=== PATIENT | female | born 1975 | race Caucasian/White ===

== ENCOUNTER 2022-05-30 17:46 | Outpatient (CLI) | payer BC, SELFPAY ==
[2022-05-30 22:09] LABS: TSH With Reflex to FT4* < 0.015 uIU/mL (0.270-4.200)
[2022-05-30 22:57] LABS: Free T4 Free Thyroxine* 1.81 ng/dL (0.70-1.85)
== END 2022-05-30 17:47 | disposition home or self-care (01) ==
LOC: KYNREF 17:47
PROVIDERS: PCP Nurse Practitioner Family; Visit Provider Nurse Practitioner Family
DX: E05.90 Thyrotoxicosis, unspecified without thyrotoxic crisis or storm (principal)
CPT/HCPCS: 84439; 84443

== ENCOUNTER 2022-11-21 16:14 | Outpatient (CLI) | payer BC, SELFPAY | END 2022-11-21 16:15 | disposition home or self-care (01) | PROVIDERS: PCP Nurse Practitioner Family; Visit Provider Nurse Practitioner Family | DX: D50.9 Iron deficiency anemia, unspecified (principal) | CPT/HCPCS: 80048; 82607; 83540; 83550; 83735; 84439; 84443; 85025 ==

== ENCOUNTER 2022-11-28 15:39 | Outpatient (CLI) | payer BC, SELFPAY ==
--- NOTE | 2022-11-28 16:00 | CRLHL7_ITS ---
For Patients: As a result of the Century Cures Act, medical imaging exams and procedure reports are released immediately into your electronic medical record. You may view this report before your referring provider. If you have questions, please contact your health care provider. INDICATION: iron deficiency anemia COMPARISON: none TECHNIQUE: 2D ferrell scale and color Doppler images were acquired of the pelvis using a transabdominal and transvaginal approach. FINDINGS: section scar is present. Left fundal intramural fibroid is present measuring 2.8 x 2.0 x 2.9 cm. Uterus measures 10.1 cm in length by 5.4 cm in AP diameter by 6.8 cm in transverse dimension. The myometrium has a normal uniform echotexture. The endometrial lining appears thickened and heterogeneous and measures 19 mm in composite thickness. The right ovary measures 3.4 x 1.9 x 3.3 cm in size and the left ovary measures 3.4 x 2.2 x 2.2 cm. Hypoechoic left ovarian cyst measuring 2.3 x 2.0 x 2.0 cm. The ovaries demonstrate normal arterial and venous blood flow on color Doppler analysis. Mild pelvic free fluid is present. IMPRESSION: Diffusely thickened and heterogeneous endometrium measuring 1.9 cm. Left fundal intramural fibroid measuring 2.9 cm. Hemorrhagic left ovarian cyst left ovary measuring 2.3 cm. Dictated by Carlos Acharya MD @ 11/29/2022 10:26:37 AM (Electronically Signed)
== END 2022-11-28 15:40 | disposition home or self-care (01) ==
PROVIDERS: PCP Nurse Practitioner Family; Visit Provider Nurse Practitioner Family
DX: D50.9 Iron deficiency anemia, unspecified (principal); R93.89 Abnormal findings on diagnostic imaging of other specified body structures; D25.1 Intramural leiomyoma of uterus; N83.202 Unspecified ovarian cyst, left side
CPT/HCPCS: 76830; 76856

== ENCOUNTER 2022-12-04 09:57 | Outpatient (CLI) | payer BC, SELFPAY ==
--- NOTE | 2022-12-04 11:37 | W.ANESCHARGE ---
Anesthesia Charges Start Date/Time Anesthesia Start Date: 12/04/22 Anesthesia Start Time: 10:44 Stop Date/Time Anesthesia Stop Date: 12/04/22 Anesthesia Stop Time: 11:28
--- NOTE | 2022-12-04 11:49 | W.ANESCHARGE ---
Anesthesia Charges Start Date/Time Anesthesia Start Date: 12/04/22 Anesthesia Start Time: 10:44 Stop Date/Time Anesthesia Stop Date: 12/04/22 Anesthesia Stop Time: 11:28
== END 2022-12-04 09:58 | disposition home or self-care (01) ==
LOC: OP CLINIC 09:58
PROVIDERS: PCP Nurse Practitioner Family; Visit Provider Surgery
DX: D50.9 Iron deficiency anemia, unspecified (principal); K31.89 Other diseases of stomach and duodenum
CPT/HCPCS: 43239; 45378; 813; 88305; 88341; 88342

== ENCOUNTER 2022-12-07 11:01 | Outpatient (CLI) | payer BC, SELFPAY | END 2022-12-07 11:02 | disposition home or self-care (01) | PROVIDERS: PCP Nurse Practitioner Family; Visit Provider Nurse Practitioner Family | DX: D50.9 Iron deficiency anemia, unspecified (principal) | CPT/HCPCS: 83540; 83550; 85025 ==

== ENCOUNTER 2022-12-12 11:15 | Outpatient (RCR) | payer BC, SELFPAY ==
--- NOTE | 2022-11-24 13:04 | URNOTE ---
Request received for authorization for?Iron Sucrose (Venofer) ([id number]). Prior authorization is not required per Fred Damon on behalf of [facility], Rep. Melvin Jain (Ref# [id number] [id number]. 11/24/22)
[2022-11-27 13:03] VITALS: BP 121/90; PULSE 93; RESP 18; TEMP 36.6; O2SAT 100
[2022-11-27] MEDS: IRON SUCROSE COMPLEX 200 MG in 0.9 % SODIUM CHLORIDE 100 ml 440 MG IVPB (13:52)
[2022-12-04 13:22] VITALS: BP 113/76; PULSE 79; RESP 16; TEMP 35.7; O2SAT 100
[2022-12-04] MEDS: IRON SUCROSE COMPLEX 200 MG in 0.9 % SODIUM CHLORIDE 100 ml 440 MG IVPB (13:32)
[2022-12-04 13:51] VITALS: BP 100/60; PULSE 80; RESP 16; TEMP 35.9; O2SAT 99
[2022-12-07 11:09] VITALS: BP 118/81; PULSE 71; RESP 16; TEMP 36.1; O2SAT 100
[2022-12-07] MEDS: IRON SUCROSE COMPLEX 200 MG in 0.9 % SODIUM CHLORIDE 100 ml 440 MG IVPB (11:34)
[2022-12-12 11:12] VITALS: BP 102/69; PULSE 77; RESP 16; TEMP 36.2; O2SAT 100
[2022-12-12] MEDS: SODIUM CHLORIDE 0.9 % (FLUSH) 10 ML SYRINGE IVF (11:30)
[2022-12-12] MEDS: 0.9 % SODIUM CHLORIDE 250 ml IV (11:30)
[2022-12-12] MEDS: IRON SUCROSE COMPLEX 200 MG in 0.9 % SODIUM CHLORIDE 100 ml 440 MG IVPB (11:35)
[2022-12-12 11:55] VITALS: BP 96/64; PULSE 68; RESP 16; O2SAT 100
[2022-12-12 12:23] VITALS: BP 110/71; PULSE 69; O2SAT 100
[2022-12-18 15:12] VITALS: BP 111/72; PULSE 78; RESP 16; TEMP 36.4; O2SAT 97
[2022-12-18] MEDS: 0.9 % SODIUM CHLORIDE 250 ml IV (15:36)
[2022-12-18] MEDS: IRON SUCROSE COMPLEX 200 MG in 0.9 % SODIUM CHLORIDE 100 ml 440 MG IVPB (15:36)
[2022-12-18] MEDS: SODIUM CHLORIDE 0.9 % (FLUSH) 10 ML SYRINGE IVF (15:37)
== END 2023-05-26 23:59 | disposition home or self-care (01) ==
LOC: CCIC 11:15
PROVIDERS: PCP Nurse Practitioner Family; Referring Provider Nurse Practitioner Family; Visit Provider Clinical Nurse Specialist
DX: D50.9 Iron deficiency anemia, unspecified (principal)
CPT/HCPCS: 96374; J1756; J2704; J7050

== ENCOUNTER 2023-01-04 07:49 | Outpatient (CLI) | payer BC, SELFPAY | END 2023-01-04 07:50 | disposition home or self-care (01) | PROVIDERS: PCP Nurse Practitioner Family; Visit Provider Nurse Practitioner Family | DX: D50.9 Iron deficiency anemia, unspecified (principal) | CPT/HCPCS: 82728; 83540; 85025 ==

== ENCOUNTER 2023-01-30 16:34 | Outpatient (CLI) | payer BC, SELFPAY | END 2023-01-30 16:35 | disposition home or self-care (01) | PROVIDERS: PCP Nurse Practitioner Family; Visit Provider Nurse Practitioner Family | DX: D50.9 Iron deficiency anemia, unspecified (principal); R53.83 Other fatigue | CPT/HCPCS: 82728; 83540; 83550; 85025 ==

== ENCOUNTER 2023-03-29 13:42 | Outpatient (CLI) | payer BC, SELFPAY | END 2023-03-29 13:43 | disposition home or self-care (01) | PROVIDERS: PCP Nurse Practitioner Family; Visit Provider Nurse Practitioner Family | DX: Z13.29 Encounter for screening for other suspected endocrine disorder (principal) | CPT/HCPCS: 82607; 83540; 83550; 84443; 85025 ==

== ENCOUNTER 2023-07-07 08:27 | Outpatient (CLI) | payer BC, SELFPAY ==
--- OUTSIDE RECORDS SUMMARY | 2023-07-09 06:43 | XMS_ITS | Encounter Summary ---
Author Name Unknown Organization [facility] Address [address] [place] [address] Care Team Providers Care Dental Technician Instructor Name Role Phone Unavailable Primary Care Provider Unavailabl e Reason for Visit * Outpatient (Routine) - Closed Specialty Diagnoses / Procedures Referred By David alejandre Referred To Contact Endocrinology Diagnoses Hypothyroidism Postsurgical Yari Foy M.D. [address] [place] [phone] Bee Baird APRN, C.N.P., D.N.P. [address] [place] [phone] Referral ID Status Reason Start Date Expiration Date Visits Re quested Visits Authorized [id number] Closed 02/05/2023 02/04/2026 1 1 Encounter Details Date Type Department Care Team (Late st Contact Info) Description 05/03/2023 2:00 PM HEEL SEAT POUNDER Office Visit Division of Endocrinology in [place], [place] [address] [place] [phone] Bee Baird APRN, C.N.P., D.N.P. [address] [place] [phone] Hypothyroidism Postsurgical Social History Tobacco Use Types Packs/Day Years Used Date Smoking Tobacco: Never Passive Smoke Exposure: Past Smokeless Tobacco: Never Alcohol Use Standard Drinks/Week Comments Yes 1 (1 standard drink = 0.6 oz pur e alcohol) 2 to 3 times a year Humiliation, Afraid, Rape, and Kick questionnair e Answer Date Recorded Within the last year, have y ou been afraid of your partner or ex-partner? No 09/04/2022 Within the last year, have y ou been humiliated or emotionally abused in other ways by your partner or ex-partner? No Within the last year, have y ou been kicked, hit, slapped, or otherwise physically hurt by your partner or ex-partner? No 09/04/2022 Within the last year, have y ou been raped or forced to have any kind of sexual activity by your partner or ex-partner? No 09/04/2022 Social Connection and Isolat ion Panel [NHANES] Answer Date Recorded In a typical week, how many times do you talk on the phone with family, friends, or neighbors? More than three times a week 06/28/2022 How often do you get togethe r with friends or relatives? Once a week 06/28/2022 How often do you attend [facility] or judaism services? More than 4 times per year 06/28/2022 Do you belong to any clubs o r organizations such as religious groups, unions, fraternal or athletic groups, or school groups? Yes 06/28/2022 How often do you attend meet ings of the clubs or organizations you belong to? 1 to 4 times per year 06/28/2022 Are you , , di vorced, , never , or living with a partner? 06/28/2022 AUDIT-C Answer Date Recorded Q1: How often do you have a drink containing alc ohol? Never 06/28/2022 Average Number of Drinks Not on file 023 Frequency of Binge Drinking Not on file 06/17 Overall Financial Resource Strain (CARDIA) Answe r Date Recorded How hard is it for you to pa y for the very basics like food, housing, medical care, and heating? Not hard at all 09/04/2022 PHQ-2 Answer Date Recorded PHQ-2 Score 0 09/27/2018 [facility] Occupat ional Health - Occupational Stress Questionnaire Answer Date Recorded Do you feel stress - tense, restless, nervous, or anxious, or unable to sleep at night because your mind is troubled all the time - these days? To some extent 06/28/2022 Exercise Vital Sign Answer Date Recorde d On average, how many days pe r week do you engage in moderate to strenuous exercise (like a brisk walk)? 3 days 06/28/2022 On average, how many minutes do you engage in exercise at this level? 40 min 06/28/2022 Hunger Vital Sign Answer Date Recorded Within the past 12 months, y ou worried that your food would run out before you got the money to buy more. Never true 09/05/19 Within the past 12 months, t he food you bought just didn't last and you didn't have money to get more. Never true 09/04/2022 PRAPARE - Transportation Answer Date Re corded In the past 12 months, has l ack of transportation kept you from medical appointments or from getting medications? No 08/17 In the past 12 months, has l ack of transportation kept you from meetings, work, or from getting things needed for daily living? No 09/04/2022 Nutrition Answer Date Recorded Nutrition: EVOO Fat Source No 06/28 On average, how many serving s of fruits and vegetables do you eat per day (serving size is equal to 1 cup or approximately the size of a tennis ball)? 4-5 06/28/2022 Dental Answer Date Recorded Dental: Regular Dentist Yes 06/29/19 Employment Answer Date Recorded Employment status Employed and actively working without restrictions 06/28/2022 Housing Stability Answer Date Recorded What is your living situation today? I have a [facility] place to live 09/04/2022 Education Answer Date Recorded What is the highest level of school you have completed or the highest degree you have received? Associate degree: academic program 09/27/2018 Sex and Gender Information Value Date Recorded Sex Assigned at Female 04/09/2018 1:27 PM HEEL SEAT POUNDER Gender Identity Female 04/09/2018 1:27 PM HEEL SEAT POUNDER Sexual Orientation Straight 04/09/2018 1: 27 PM HEEL SEAT POUNDER documented as of this encounter Last Filed Vital Signs Vital Sign Reading Time Taken Comments Blood Pressure 116/78 05/03/2023 1:55 PM HEEL SEAT POUNDER Pulse 98 05/03/2023 1:55 PM HEEL SEAT POUNDER Temperature - - Respiratory Rate - - Oxygen Saturation - - Inhaled Oxygen Concentration - - Weight 96.9 kg (213 lb 10 oz) 05/03/2023 1:55 PM HEEL SEAT POUNDER Height 171.4 cm (5' 7.48) 05/03/2023 1:55 PM CS T Body Mass Index 32.98 05/03/2023 1:55 PM HEEL SEAT POUNDER documented in this encounter Progress Notes * Bee Baird APRN, C.N.P., D.N.P. - 05/03/2023 2:00 PM CST CHIEF COMPLAINT / REASON FOR VISIT Sandhya Alva is a 47 y.o. 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 This nodule underwent FNA biopsy with benign results. Patient with a history of on and off biochemical thyrotoxicosis since September 2017 when TSH was low at 0.21. Neck US repeated at [facility] showed again a left thyroid nodularity measuring 4.2 x 2.6 x 1.9 cm. The left dominant thyroid nodule underwent repeat FNA again with benign cytology. Two subcentimeter cystic nodules were noted to the right and left thyroid lobe. Labs repeated December 2017 showing TSH 0.28 and inDecember 2017 when TSH was 0.12. By labs in March 2018, TSH 0.8, free T4 1.1, total T3 100. TRAB <1.00, not consistent with Graves' disease. Uptake and scan demonstrating 11.9% with a focus of uptake over the left thyroid lobe nodule, consistent with toxic adenoma. May 2022: TSH 0.015, free T4 1.81. She met with Dr. Yari Foy in June 2022 and they discussed treatment options including lobectomy surgery vs AGUILAR, she chose surgery. September 12, 2022: Patient underwent left lobectomy by Dr. Antonio Borges with final pathology showing adenomatous nodule with a typical features and marked fibrosis with degenerative changes. October 2022: TSH 2.19 December 2022: Met with Dr. Foy again in follow up. TSH had been borderline elevated around 3's-4's. Levothyroxine 25 mcg daily initiated. Today, Sandhya Alva, confirms taking 25 mcg of levothyroxine daily. She takes her levothyroxine at night, on an empty stomach. She has continued to be troubled by ongoing symptoms of fatigue whichbegan back in October 2022. She reports that she is sleeping well each night for at least 10 hours. No frequent awakenings throughout the night. She denies loud snoring but does relay that her husbanddoes told her that there are pauses in her breathing at night. She has never been tested for obstructive sleep apnea. She does have a family history of sleep apnea and both her father and brother. Additionally, in November 2022, she was found to have iron deficiency anemia and required IV iron replacement. She is currently managed on daily oral iron replacement and most recent hemoglobin was normal in the . She has been seen here by our GI team for evaluation of the iron-deficiency anemia and was also diagnosed with autoimmune gastritis. She reports symptoms of hair loss that of an ongoing since this past summer. She reports that her maternal grandfather had to have his thyroid removedfor unclear etiologies. She also reports that 1 of her cousin may have had some thyroid troubles, again with unclear etiologies. REVIEW OF SYSTEMS REVIEW OF SYSTEMS OBJECTIVE BP 116/78 (BP Location: Right arm, Patient Position: Sitting, Cuff Size: Large) Pulse 98 Ht 171.4 cm Wt 96.9 kg BMI 32.98 kg/m?? PHYSICAL EXAM GENERAL: Alert and oriented to person, place, and time. Resting comfortably on the exam table. No acute distress. SKIN: Flesh-toned. Warm and dry. No lesions or rashes noted to exposed skin. NECK: Trinity scar well-healed. No nodularity palpated to left thyroid bed or remaining right thyroid lobe. LYMPHATIC: No head, neck, or supraclavicular lymphadenopathy. RESPIRATORY: Respiratory rate regular and unlabored. Lung sounds clear. No rales, rhonchi, or wheezing. CARDIOVASCULAR: S1, S2. Regular rate and rhythm. No murmur, gallops, or rubs. No lower extremity edema. PSYCHIATRIC: Appropriate affect. Cooperative behavior. NEURO: No tremor to bilateral outstretched hands. DIAGNOSTICS Recent Results (from the past 24 hour(s)) S-TSH (Thyroid-Stimulating Hormone - Sensitive) Collection Time: 05/03/23 11:22 AM Result Value TSH, Sensitive 2.4 T4 (Thyroxine), Free Collection Time: 05/03/23 11:22 AM Result Value T4 (Thyroxine), Free, S 1.2 ASSESSMENT / PLAN #1 Toxic left thyroid nodule s/p left lobectomy surgery August 2022 with benign final pathology #2 Postsurgical subclinical hypothyroidism, on thyroid hormone replacement I reviewed with Mrs. Alva the results of her thyroid function testing that was completed today. Her TSH is comfortably in the mid normal reference range at 2.4 with normal free T4 at 1.2. She confirms taking levothyroxine 25 mcg each night and I recommend that she continue as such. We explored various etiologies for her fatigue and hair loss and I shared that with normal thyroid function testing, we would not expect that these symptoms are thyroid specific. I expect that these may be multifactorial with her thyroid surgery and iron deficiency anemia. With her endorsing some pauses in her breathing at night and positive family history of sleep apnea, I have encouraged her to reach out to her primary care provider to see if she may benefit from overnight oximetry testing. Recommend that she transition her ongoing thyroid surveillance over to her primary care provider. Recommend checking TFTs every 6-12 months or sooner with symptoms of hypo/hyperthyroidism. We would be happy to see her back in the Thyroid Clinic if we can be of any further assistance. SEAT POUNDER documented in this encounter Plan of Treatment Not on file documented as of this encounter Visit Diagnoses Diagnosis Hypothyroidism Postsurgical documented in this encounter Additional Health Concerns Assessment Noted Time PHQ-9 Depression Total Score: 0 03/28/19 20 9:12 AM HEEL SEAT POUNDER documented as of this encounter
--- OUTSIDE RECORDS SUMMARY | 2023-07-09 06:43 | XMS_ITS | Encounter Summary ---
Author Name Unknown Organization [facility] Address [address] [place] [address] Care Team Providers Care Copier Operator Name Role Phone Unavailable Primary Care Provider Unavailabl e Reason for Visit * Reason Onset Date Comments Pre-visit Intake 05/01/2023 Encounter Details Date Type Department Care Team (Latest Contact Info) Description 05/01/2023 4:15 PM NETWORK SOLUTIONS ARCHITECT Clinical Communication Virtual Review in [place], [place] [address] [place] [phone] Pre-visit Intake Social History Tobacco Use Types Packs/Day Years [...] week 06/28/2022 How often do you attend chur ch or taoism services? More than 4 times per year 06/28/2022 Do you belong to any clubs o r organizations such as denominational groups, unions, fraternal or athletic groups, or [...] Answer Date Recorded PHQ-2 Score 0 09/27/2018 [facility] of Occupat ional Health - Occupational Stress [...] money to buy more. Never true 09/05/19 23 Within the past 12 months, t he [...] your living situation today? I have a [facility] place to live 09/04/2022 Education Answer Date Recorded What is the highest level of school you have completed or the highest degree you have received? Associate degree: academic program 09/27/2018 Sex and Gender Information Value Date Recorded Sex Assigned at Female 04/09/2018 1:27 PM NETWORK SOLUTIONS ARCHITECT Gender Identity Female 04/09/2018 1:27 PM NETWORK SOLUTIONS ARCHITECT Sexual Orientation Straight 04/09/2018 1: 27 PM NETWORK SOLUTIONS ARCHITECT documented as of this encounter Plan of Treatment Not on file documented as of this encounter Visit Diagnoses Not on filedocumented in this encounter Additional Health Concerns Assessment Noted Time PHQ-9 Depression Total Score: 0 03/28/19 9:12 AM NETWORK SOLUTIONS ARCHITECT documented as of this encounter
--- OUTSIDE RECORDS SUMMARY | 2023-07-09 06:43 | XMS_ITS | Encounter Summary ---
Author Name Unknown Organization [facility] Address [address] [place] [address] Care Team Providers Care Diabetes Physician Name Role Phone Unavailable Primary Care Provider Unavailabl e Encounter Details Date Type Department Care Team (Latest Contact Info) Description 05/03/2023 11:01 AM SPORTING GOODS SALESPERSON - 05/03/2023 11:59 PM [facility] Hospital Encounter Department of Laboratory Medicine and Pathology, [facility] in [place], [place] [address] [place] [phone] Law, Yari Newton M.D. [address] [place] [phone] Hypothyroidism Postsurgical Discharge Disposition: Home or Self Care Social History Tobacco Use Types Packs/Day Years [...] 06/28/2022 How often do you attend chur or denominational services? More than 4 times per year 06/28/2022 Do you belong to any clubs o r organizations such as judaism groups, unions, fraternal or athletic groups, or [...] Answer Date Recorded PHQ-2 Score 0 09/27/2018 [facility] [place] [facility] - Occupational Stress Questionnaire Answer Date [...] your living situation today? I have a [facility] place to live 09/04/2022 Education Answer Date Recorded What is the highest level of school you have completed or the highest degree you have received? Associate degree: academic program 09/27/2018 Sex and Gender Information Value Date Recorded Sex Assigned at Female 04/09/2018 1:27 PM SPORTING GOODS SALESPERSON Gender Identity Female 04/09/2018 1:27 PM SPORTING GOODS SALESPERSON Sexual Orientation Straight 04/09/2018 1: 27 PM SPORTING GOODS SALESPERSON documented as of this encounter Medications at Time of Discharge Medication Sig Dispensed Refills Start Date End Date calcium carbonate-vitamin D3 625 mg (250 mg calcium)-3.125 mcg (125 Unit) per tablet Take 2 tablets by mouth daily. cetirizine (ZyrTEC) 10 mg tablet Take 10 mg by mouth as needed (for allergies). 05/17/2022 EPINEPHrine (EPIPEN) 0.3 mg/0.3 mL injection syringe Inject 0.3 mL intramuscularly as needed for anaphylaxis. 11/09/2009 fluticasone propionate (FLONASE NASAL) Administer 2 sprays into nostril(s) daily as needed. FOR ALLERGIES - 11/20/2009 levothyroxine (SYNTHROID, LEVOTHROID) 25 mcg tablet Take 1 tablet (25 mcg total) by mouth every morning before breakfast. 90 tablet 3 12/26/2022 documented as of this encounter Plan of Treatment Not on file documented as of this encounter Procedures Procedure Name Priority Date/Time Associated Diagnosis Comments THYROID-STIMULATIN G HORMONE-SENSITIVE (S-TSH) Routine 05/03/2023 11:22 AM SPORTING GOODS SALESPERSON Hypothyroidism Postsurgical T4 (THYROXINE), FREE, S Routine 05/03/2023 11:22 AM SPORTING GOODS SALESPERSON Hypothyroidism Postsurgical documented in this encounter Results * T4 (Thyroxine), Free (05/03/2023 11:22 AM SPORTING GOODS SALESPERSON) T4 (Thyroxine), Free, S 1.2 0.9 - 1.7 ng/dL 05/03/2023 12:34 PM SPORTING GOODS SALESPERSON DTL Blood (Blood, Venous) 05/03/2023 11:22 AM SPORTING GOODS SALESPERSON 05/03/2023 11:59 AM SPORTING GOODS SALESPERSON Yari Foy M.D. LAB BLOOD ADD-ON Performing Organization Address City/[facility]/ZIP Co de Phone Number [facility] [address] [place] [address], [facility] [address] [place] [address] * S-TSH (Thyroid-Stimulating Hormone - Sensitive) (05/03/2023 11:22 AM SPORTING GOODS SALESPERSON) TSH, Sensitive 2.4 0.3 - 4.2 mIU/L 05/03/2023 12:34 PM SPORTING GOODS SALESPERSON DTL Blood (Blood, Venous) 05/03/2023 11:22 AM SPORTING GOODS SALESPERSON 05/03/2023 11:59 AM SPORTING GOODS SALESPERSON Yari Foy M.D. LAB BLOOD ADD-ON Performing Organization Address City/[facility]/ZIP Co de Phone Number [facility] [address] [place] [address], [place] [address] documented in this encounter Visit Diagnoses Diagnosis Hypothyroidism Postsurgical documented in this encounter Additional Health Concerns Assessment Noted Time PHQ-9 Depression Total Score: 0 03/28/19 20 9:12 AM SPORTING GOODS SALESPERSON documented as of this encounter
--- OUTSIDE RECORDS SUMMARY | 2023-07-09 06:43 | XMS_ITS | Clinical Summary ---
Author Name Unknown Organization [facility] Address [address] [place] [address] Care Team Providers Care Air Conditioning Supervisor Name Role Phone Unavailable Primary Care Provider Unavailabl e Source Comments Patient records contain information from all sites at [facility]. For routine questions regarding patient records, call [phone] during business hours, M-F 8:00 AM - 5:00 PM Central Time. Record requests for emergency care only can be directed to [phone] at any time.[facility] Allergies Active Allergy Reactions Criticality Noted Date Comments Aspirin Angioedema (Reselect Reaction) Medium 11/19 Montelukast Swelling Medium 11/09/2009 Medications Medication Sig Dispensed Refills Start Date End Date Status EPINEPHrine (EPIPEN) 0.3 mg/0.3 mL injection syringe Inject 0.3 mL intramuscularly as needed for anaphylaxis. 11/09/2009 Active fluticasone propionate (FLONASE NASAL) Administer 2 sprays into nostril(s) daily as needed. FOR ALLERGIES - 11/20/2009 Active cetirizine (ZyrTEC) 10 mg tablet Take 10 mg by mouth as needed (for allergies). 05/17/2022 Active levothyroxine (SYNTHROID, LEVOTHROID) 25 mcg tablet Take 1 tablet (25 mcg total) by mouth every morning before breakfast. 90 tablet 3 12/26/2022 Active Additional Information Patient taking differently:25 mcg oralEvery evening, Reported on 05/01/2023 calcium carbonate-vitamin D3 625 mg (250 mg calcium)-3.125 mcg (125 Unit) per tablet Take 2 tablets by mouth daily. Active Active Problems Problem Noted Date Diagnosed Date Chronic Migraine 09/27/2018 Hyperthyroidism 04/09/2018 Fatigue 04/09/2018 Loss Weight 04/09/2018 Nodule Thyroid 04/09/2018 Depressive Disorder 10/04/2010 Overview: Depression prior to this date - unsure exact date Encounters Date Type Department Care Team Description 05/03/2023 2:00 PM MICROSOFT ARCHITECT Office Visit Division of Endocrinology in [place], [place] [address] [place] [phone] Bee Baird, NICOLETTE, C.N.P., D.N.P. Hypothyroidism Postsurgical 05/03/2023 11:01 AM MICROSOFT ARCHITECT - 05/03/2023 11:59 PM MICROSOFT ARCHITECT Hospital Encounter Department of Laboratory Medicine and Pathology, [facility], in [place], [place] [address] [place] [phone] Law, Yari Newton M.D. Hypothyroidism Postsurgical Discharge Disposition: Home or Self Care 05/01/2023 4:15 PM MICROSOFT ARCHITECT Clinical Communication Virtual Review in [place], [place] 200 [place] [address] Pre-visit Intake from Last 3 Months Immunizations Name Administration Dates Next Due DTaP (Infanrix, Tripedia) 12/10/2008,11/17/2008 Influenza TIV (IM) 02/17/2004 Influenza, Seasonal, Injectable 02/17/2004 Influenza, Unspecified 02/17/2004 Tdap 12/10/2008,11/17/2008 Family History Medical History Relation Name Comments Hyperlipidemia Brother 1 jackeline roles Hypertension Brother 1 jackeline roles Obesity Brother 1 jackeline roles Hyperlipidemia Brother 2 douglas roles Hypertension Brother 2 douglas roles Obesity Brother 2 douglas roles Sleep apnea Brother 2 douglas roles Seizures Brother 3 joseluis roles ADD Brother 4 kaleigh roles Drug abuse Brother 4 kaleigh roles Learning disorder Brother 4 kaleigh roles Asthma Daughter ramya alva Clotting disorder Father glen roles Hyperlipidemia Father glen roles Hypertension Father glen roles Kidney cancer Father glen roles Obesity Father glen roles Sleep apnea Father glen roles Diabetes Father's Brother Lambert Roles Hyperlipidemia Father's Brother Lambert Roles Obesity Father's Brother Lambert Roles Diabetes Maternal Grandfather keo willis Stroke Maternal Grandfather keo willis Thyroid disease Maternal Grandfather keo willis [place] d thyroid removed as a teenager Obesity Maternal Grandmother bernis Depression Mother Kriss Roles Obesity Mother Kriss Roles Diabetes Mother's Brother Bao Navaagie Obesity Mother's Brother Bao Louwagimauro Depression Mother's Sister Kacey person Diabetes Mother's Sister Kacey person Coronary artery disease Paternal Grandfather Glenn Ro les Diabetes Paternal Grandfather Glenn Roles Hypertension Paternal Grandfather Glenn Roles Obesity Paternal Grandfather Glenn Roles Lymphoma Paternal Grandmother Sandhya Navaag ie Maternal grandma Relation Name Status Comments Brother 1 jackeline roles Brother 2 douglas roles Brother 3 joseluis roles Brother 4 kaleigh roles Daughter ramya alva Father glen roles Father's Brother Lambert Roles Maternal Grandfather keo willis Maternal Grandmother bernis Mother Kriss Roles Mother's Brother Bao Louwagie Mother's Sister Kacey person Paternal Grandfather Glenn Roles Paternal Grandmother Sandhya Navaagimauro Maternal grandma Social History Tobacco Use Types Packs/Day Years Used Date Smoking Tobacco: Never Passive Smoke Exposure: Past Smokeless Tobacco: Never Tobacco Cessation:Counseling Given: Not Answered Alcohol Use Standard Drinks/Week Comments Yes 1 [...] often do you attend chur ch or caodaism services? More than 4 times per year 06/28/2022 Do you belong to any clubs o r organizations such as caodaism groups, unions, fraternal or athletic groups, or [...] Average Number of Drinks Not on file Frequency of Binge Drinking Not on file 06/17 Overall Financial Resource Strain (CARDIA) Answe r Date Recorded How hard is it for you to pa y for the very basics like food, housing, medical care, and heating? Not hard at all 09/04/2022 PHQ-2 Answer Date Recorded PHQ-2 Score 0 09/27/2018 [facility] of Occupat ional Health - Occupational Stress [...] your living situation today? I have a [facility] place to live 09/04/2022 Education Answer Date Recorded What is the highest level of school you have completed or the highest degree you have received? Associate degree: academic program 09/27/2018 Sex and Gender Information Value Date Recorded Sex Assigned at Female 04/09/2018 1:27 PM MICROSOFT ARCHITECT Gender Identity Female 04/09/2018 1:27 PM MICROSOFT ARCHITECT Sexual Orientation Straight 04/09/2018 1: 27 PM MICROSOFT ARCHITECT Last Filed Vital Signs Vital Sign Reading Time Taken Comments Blood Pressure 116/78 05/03/2023 1:55 PM MICROSOFT ARCHITECT Pulse 98 05/03/2023 1:55 PM MICROSOFT ARCHITECT Temperature 36.4 ??C (97.5 ??F) 09/12/2022 5:35 PM CD T Respiratory Rate 15 09/12/2022 5:35 PM CDT Oxygen Saturation 100% 09/12/2022 5:35 PM CDT Inhaled Oxygen Concentration - - Weight 96.9 kg (213 lb 10 oz) 05/03/2023 1:55 PM MICROSOFT ARCHITECT Height 171.4 cm (5' 7.48) 05/03/2023 1:55 PM CS T Body Mass Index 32.98 05/03/2023 1:55 PM MICROSOFT ARCHITECT Plan of Treatment Health Maintenance Due Date Last Done Comments CT Colonography 1977 Cologuard 1977 Colonoscopy 1977 Colorectal Cancer Screening 1977 Depression Monitoring (PHQ-9) 1977 FIT 1977 Fasting Glucose for Diabetes Screening 1977 HIV Screening 1977 Hepatitis C Screening 1977 Hepatitis B Vaccines (1 of 3 - 19+ 3-dose series) 1996 Mammogram 11/01/2018 11/01/2017 DTaP,Tdap,and Td Vaccines (5 - Td or Tdap) 12/10/2018 12/10/2008, 12/10/2008, 11/17/2008, Additional history exists Lipid (Cholesterol) Screening 09/28/2022 09/28/2017 COVID-19 Vaccine ( season) 2022 Influenza Vaccine (#1) 2022 4, 02/17/2004, 02/17/2004 Thyroid Stimulating Hormone (TSH) test for thyroid function 05/03/2024 05/03/2023, 12/26/2022, 10/18/2022, Additional history exists Cervical Cancer Screening 12/18/2025 12/18/2022 Pneumococcal vaccine (0-64 years) Aged Out No longer eligible based on patient's age to complete this topic Medical Devices Implanted Type Area Welding Process Engineer Device Identifier Shelf Expiration Date Model / Serial / Lot Clp Hrzn Ti 6 Clp Paolo - [id number] Implanted:Qty: 1 on 09/12/2022 by Antonio Borges M.D. at [facility] Hardware e.g. pins/screws/yelena s [employer] [id number] / / Clp Hrzn Ti 6 Paulo Shearer Paolo - [id number] Implanted:Qty: 1 on 09/12/2022 by Antonio Borges M.D. at [facility] Hardware e.g. pins/screws/yelena s [employer] [id number] / / Clp Hrzn Ti 6 Paulo Shearer Paolo - [id number] Implanted:Qty: 2 on 09/12/2022 by Antonio Borges M.D. at [facility] Hardware e.g. pins/screws/yelena s [employer] [id number] / / Intrauterine Device- 3 Implanted:12/17 (Quantity not on file) Intrauterine Device Uterus Description:MIRENA - Procedures Procedure Name Priority Date/Time Associated Diagnosis Comments T4 (THYROXINE), FREE, S Routine 05/03/2023 11:22 AM MICROSOFT ARCHITECT Hypothyroidism Postsurgical THYROID-STIMULATIN G HORMONE-SENSITIVE (S-TSH) Routine 05/03/2023 11:22 AM MICROSOFT ARCHITECT Hypothyroidism Postsurgical BI BREAST SCREENING BILATERAL Routine 11/01/2017 8:53 AM CDT EXTI LIPID PANEL, S Routine 09/28/2017 9:14 AM CDT from Last 3 Months or Most Recently Relevant to Health Maintenance Results * S-TSH (Thyroid-Stimulating Hormone - Sensitive) (05/03/2023 11:22 AM MICROSOFT ARCHITECT) TSH, Sensitive 2.4 0.3 - 4.2 mIU/L 05/03/2023 12:34 PM MICROSOFT ARCHITECT DTL Blood (Blood, Venous) 05/03/2023 11:22 AM MICROSOFT ARCHITECT 05/03/2023 11:59 AM MICROSOFT ARCHITECT Yari Foy M.D. LAB BLOOD ADD-ON Performing Organization Address City/[facility]/ZIP Co de Phone Number [facility] [address] 200 [place] [address] * T4 (Thyroxine), Free (05/03/2023 11:22 AM MICROSOFT ARCHITECT) Pathologist [facility] T4 (Thyroxine), Free, S 1.2 0.9 - 1.7 ng/dL 05/03/2023 12:34 PM MICROSOFT ARCHITECT DTL Blood (Blood, Venous) 05/03/2023 11:22 AM MICROSOFT ARCHITECT 05/03/2023 11:59 AM MICROSOFT ARCHITECT Yari Foy M.D. LAB BLOOD ADD-ON [facility] [address] [place] [address] from Last 3 Months or Most Recently Relevant to Health Maintenance Advance Directives For more information, please contact: [phone] * Full Code (Latest Code Status on File) Date Activated Date Inactivated Comments 09/12/2022 9:48 AM 09/12/2022 9:16 PM Question Answer Comments Full Code: Not Discussed Due to: Patient not available * Full Code Date Activated Date Inactivated Comments 09/12/2022 6:00 AM 09/12/2022 9:48 AM Question Answer Comments Full Code: Discussed
--- OUTSIDE RECORDS SUMMARY | 2023-07-09 06:43 | XMS_ITS | Encounter Summary ---
Author Name Unknown Organization [facility] Address [address] [place] [address] Care Team Providers Care World Renowned Chef And Restaurant Owner Name Role Phone Unavailable Primary Care Provider Unavailabl e Encounter Details Date Type Department Care Team (Latest Contact Info) Description 03/13/2023 Clinical Communication Division of Gastroenterology in [place], [place] [address] [place] [phone] Adama Sal M.D. [address] [place] [phone] Social History Tobacco Use Types Packs/Day Years [...] any clubs o r organizations such as hindu groups, unions, fraternal or athletic groups, or [...] Answer Date Recorded PHQ-2 Score 0 09/27/2018 [facility] of Occupat ional Health - [...] your living situation today? I have a [facility] place to live 09/04/2022 Education Answer Date Recorded What is the highest level of school you have completed or the highest degree you have received? Associate degree: academic program 09/27/2018 Sex and Gender Information Value Date Recorded Sex Assigned at Female 04/09/2018 1:27 PM SHORTAGE WORKER Gender Identity Female 04/09/2018 1:27 PM SHORTAGE WORKER Sexual Orientation Straight 04/09/2018 1: 27 PM SHORTAGE WORKER documented as of this encounter Plan of Treatment Not on file documented as of this encounter Visit Diagnoses Not on filedocumented in this encounter Additional Health Concerns Assessment Noted Time PHQ-9 Depression Total Score: 0 03/28/19 9:12 AM SHORTAGE WORKER documented as of this encounter
--- OUTSIDE RECORDS SUMMARY | 2023-07-09 06:43 | XMS_ITS ---
Author Name Unknown Organization [facility] Address [address] [place] [address] Care Team Providers Care Desktop Support Associate Name Role Phone Unavailable Unavailable Unavailable Surgery Details Not on file Complications Check Surgery Details section. Procedure Estimated Blood Loss Check Surgery Details section. Procedure Findings Check Surgery Details section. Procedure Specimens Taken Check Surgery Details section.
--- OUTSIDE RECORDS SUMMARY | 2023-07-09 06:43 | XMS_ITS | Encounter Summary ---
Author Name Unknown Organization [facility] Address [address] [place] [address] Care Team Providers Care Scheduling Manager Name Role Phone Unavailable Primary Care Provider Unavailabl e Reason for Referral * Outpatient (Routine) - Closed Specialty Diagnoses / Procedures Referred By Contgreyson t Referred To Contact Endocrinology Diagnoses Hyperthyroidism Nadiya Fong, C.N.P. [address] [place] [address] [facility] Referral ID Status Reason Start Date Expiration Date Visits Re quested Visits Authorized [id number] Closed 04/03/2018 04/03/2019 1 1 H CUTTING INSPECTOR Encounter Details Date Type Department Care Team (Late st Contact Info) Description 04/03/[address] [facility] [place] [address] [place] [phone] Nadiya Fong, C.N.P. [address] [place] [address] Hyperthyroidism (Primary Dx) Social History Tobacco Use Types Packs/Day Years Used Date Smoking Tobacco: Never Assessed Sex and Gender Information Value Date Recorded Sex Assigned at Female 04/09/2018 1:27 PM CLOTH CUTTING INSPECTOR Gender Identity Female 04/09/2018 1:27 PM CLOTH CUTTING INSPECTOR Sexual Orientation Straight 04/09/2018 1: 27 PM CLOTH CUTTING INSPECTOR documented as of this encounter Plan of Treatment Scheduled Referrals Name Type Priority Associated Diagnoses Order Schedule Endocrinology Referral Outpatient Referral Routine Hyperthyroidism Expected: 04/03/2018 (Approximate), Expires: 04/03/2021 documented as of this encounter Visit Diagnoses Diagnosis Hyperthyroidism- Primary documented in this encounter
--- OUTSIDE RECORDS SUMMARY | 2023-07-09 06:43 | XMS_ITS | Referral Summary ---
Author Name Unknown Organization [facility] Address [address] [place] [address] Care Team Providers Care Research And Development Scientist Name Role Phone Unavailable Primary Care Provider Unavailabl e Source Comments Patient records contain information from all sites at [facility]. For routine questions regarding patient records, call [phone] during business hours, M-F 8:00 AM - 5:00 PM Central Time. Record requests for emergency care only can be directed to [phone] at any time.[facility] Encounters Date Type Department Care Team Description 05/03/2023 11:01 AM KNOCKOUT MAN - 05/03/2023 11:59 PM KNOCKOUT MAN Hospital Encounter Department of Laboratory Medicine and Pathology, [facility], in [address] [phone] Law, Yari Newton M.D. Hypothyroidism Postsurgical Discharge Disposition: Home or Self Care 05/03/2023 2:00 PM KNOCKOUT MAN Office Visit Division of Endocrinology in [address] [phone] Bee Baird APRN, C.N.P., D.N.P. Hypothyroidism Postsurgical 05/01/2023 4:15 PM KNOCKOUT MAN Clinical Communication Virtual Review in [address] [phone] Pre-visit Intake from Last 3 Months Allergies Active Allergy Reactions Criticality Noted Date [...] to this date - unsure exact date Immunizations Name Administration Dates Next Due DTaP (Infanrix, Tripedia) 12/10/2008,11/17/2008 Influenza TIV (IM) 02/17/2004 Influenza, Seasonal, Injectable 02/17/2004 Influenza, Unspecified 02/17/2004 Tdap 12/10/2008,11/17/2008 Social History Tobacco Use Types Packs/Day Years [...] often do you attend chur ch or sikhism services? More than 4 times per year 06/28/2022 Do you belong to any clubs o r organizations such as mandaeism groups, unions, fraternal or athletic groups, or [...] Answer Date Recorded PHQ-2 Score 0 09/27/2018 [facility] of Occupat ional Health - Occupational [...] your living situation today? I have a [facility] place to live 09/04/2022 Education Answer Date Recorded What is the highest level of school you have completed or the highest degree you have received? Associate degree: academic program 09/27/2018 Sex and Gender Information Value Date Recorded Sex Assigned at Female 04/09/2018 1:27 PM KNOCKOUT MAN Gender Identity Female 04/09/2018 1:27 PM KNOCKOUT MAN Sexual Orientation Straight 04/09/2018 1: 27 PM KNOCKOUT MAN Last Filed Vital Signs Vital Sign Reading Time Taken Comments Blood Pressure 116/78 05/03/2023 1:55 PM KNOCKOUT MAN Pulse 98 05/03/2023 1:55 PM KNOCKOUT MAN Temperature 36.4 ??C (97.5 ??F) 09/12/2022 5:35 PM CD T Respiratory Rate 15 09/12/2022 5:35 PM CDT Oxygen Saturation 100% 09/12/2022 5:35 PM CDT Inhaled Oxygen Concentration - - Weight 96.9 kg (213 lb 10 oz) 05/03/2023 1:55 PM KNOCKOUT MAN Height 171.4 cm (5' 7.48) 05/03/2023 1:55 PM CS T Body Mass Index 32.98 05/03/2023 1:55 PM KNOCKOUT MAN Plan of Treatment Not on file Medical Devices Implanted Type Area World Designer Device Identifier Shelf Expiration Date Model / Serial / Lot Clp Hrzn Ti 6 Clp Paolo - [id number] Implanted:Qty: 1 on 09/12/2022 by Antonio Borges M.D. at [facility] Hardware e.g. pins/screws/yelena s [employer] [id number] / / Clp Hrzn Ti 6 Paulo Shearer Paolo - [id number] Implanted:Qty: 1 on 09/12/2022 by Antonio Borges M.D. at [facility] Hardware e.g. pins/screws/yelena s [employer] [id number] / / Clp Hrzn Ti 6 Clp Paolo - [id number] Implanted:Qty: 2 on 09/12/2022 by Antonio Borges M.D. at [facility] Hardware e.g. pins/screws/yelena s [employer] [id number] / / Intrauterine Device- 3 Implanted:12/17 (Quantity not on file) Intrauterine Device Uterus Description:MIRENA - Procedures Procedure Name Priority Date/Time Associated Diagnosis Comments T4 (THYROXINE), FREE, S Routine 05/03/2023 11:22 AM KNOCKOUT MAN Hypothyroidism Postsurgical THYROID-STIMULATIN G HORMONE-SENSITIVE (S-TSH) Routine 05/03/2023 11:22 AM KNOCKOUT MAN Hypothyroidism Postsurgical BI BREAST SCREENING BILATERAL Routine 11/01/2017 8:53 AM CDT EXTI LIPID PANEL, S Routine 09/28/2017 9:14 AM CDT from Last 3 Months or Most Recently Relevant to Health Maintenance Results * S-TSH (Thyroid-Stimulating Hormone - Sensitive) (05/03/2023 11:22 AM KNOCKOUT MAN) TSH, Sensitive 2.4 0.3 - 4.2 mIU/L 05/03/2023 12:34 PM KNOCKOUT MAN DTL Blood (Blood, Venous) 05/03/2023 11:22 AM KNOCKOUT MAN 05/03/2023 11:59 AM KNOCKOUT MAN Yari Foy M.D. LAB BLOOD ADD-ON [facility] [address] [place] [address], [facility] [address] [place] [address] * T4 (Thyroxine), Free (05/03/2023 11:22 AM KNOCKOUT MAN) T4 (Thyroxine), Free, S 1.2 0.9 - 1.7 ng/dL 05/03/2023 12:34 PM KNOCKOUT MAN DTL Blood (Blood, Venous) 05/03/2023 11:22 AM KNOCKOUT MAN 05/03/2023 11:59 AM KNOCKOUT MAN Yari Foy M.D. LAB BLOOD ADD-ON Performing Organization Address City/[facility]/ZIP Co de Phone Number [facility] [address] [place] [address], [facility] [address] [place] [address] from Last 3 Months or Most Recently Relevant to Health Maintenance Advance Directives For more information, please contact: [phone] * Full Code (Latest Code Status on File) Date Activated Date Inactivated Comments 09/12/2022 9:48 AM 09/12/2022 9:16 PM Question Answer Comments Full Code: Not Discussed Due to: Patient not available * Full Code Date Activated Date Inactivated Comments 09/12/2022 6:00 AM 09/12/2022 9:48 AM Question Answer Comments Full Code: Discussed
== END 2023-07-07 08:28 | disposition home or self-care (01) ==
LOC: NFLDREF 07-09 06:41
PROVIDERS: PCP Nurse Practitioner Family; Referring Provider Nurse Practitioner Family; Visit Provider Registered Nurse
DX: N39.0 Urinary tract infection, site not specified (principal)
CPT/HCPCS: 87086; 87186

== ENCOUNTER 2023-08-02 09:23 | Outpatient (CLI) | payer BC, SELFPAY | END 2023-08-02 09:24 | disposition home or self-care (01) | PROVIDERS: PCP Nurse Practitioner Family; Visit Provider Nurse Practitioner Family | DX: N39.0 Urinary tract infection, site not specified (principal); E03.9 Hypothyroidism, unspecified; Z86.2 Personal history of diseases of the blood and blood-forming organs and certain disorders involving the immune mechanism | CPT/HCPCS: 81001; 84443; 85025; 87086; 87186 ==

== ENCOUNTER 2023-09-24 17:28 | Outpatient (CLI) | payer BC, SELFPAY ==
--- OUTSIDE RECORDS SUMMARY | 2023-09-25 00:04 | XMS_ITS | Referral Summary ---
Author Organization [facility] Address [address] [place] [address] Care Team Providers Care Voyage Management System Operator Name Role Phone Unavailable Primary Care Provider Unavailabl e Source Comments Patient records contain information from all sites at [facility]. For routine questions regarding patient records, call [phone] during business hours, M-F 8:00 AM - 5:00 PM Central Time. Record requests for emergency care only can be directed to [phone] at any time.[facility] Allergies Active Allergy Reactions Criticality Noted [...] often do you attend chur ch or rastafarian services? More than 4 times per year 06/28/2022 Do you belong to any clubs o r organizations such as mormon groups, unions, fraternal or athletic groups, or [...] Date Recorded PHQ-2 Score 0 09/27/2018 [facility] of Occupat ional Health - Occupational Stress [...] your living situation today? I have a [facility] place to live 09/04/2022 Education Answer Date Recorded What is the highest level of school you have completed or the highest degree you have received? Associate degree: academic program 09/27/2018 Sex and Gender Information Value Date Recorded Sex Assigned at Female 04/09/2018 1:27 PM WAITSTAFF Gender Identity Female 04/09/2018 1:27 PM WAITSTAFF Sexual Orientation Straight 04/09/2018 1: 27 PM WAITSTAFF Last Filed Vital Signs Vital Sign Reading Time Taken Comments Blood Pressure 116/78 05/03/2023 1:55 PM WAITSTAFF Pulse 98 05/03/2023 1:55 PM WAITSTAFF Temperature 36.4 ??C (97.5 ??F) 09/12/2022 5:35 PM CD T Respiratory Rate 15 09/12/2022 5:35 PM CDT Oxygen Saturation 100% 09/12/2022 5:35 PM CDT Inhaled Oxygen Concentration - - Weight 96.9 kg (213 lb 10 oz) 05/03/2023 1:55 PM WAITSTAFF Height 171.4 cm (5' 7.48) 05/03/2023 1:55 PM CS T Body Mass Index 32.98 05/03/2023 1:55 PM WAITSTAFF Plan of Treatment Not on file Medical Devices Implanted Type Area Urban Anthropologist Device Identifier Shelf Expiration Date Model / Serial / Lot Clp Hrzn Ti 6 Paulo Shearer Paolo - [id number] Implanted:Qty: 1 on 09/12/2022 by Antonio Borges M.D. at [facility] Hardware e.g. pins/screws/yelena s [employer] [id number] / / Clp Hrzn Ti 6 Paulo Shearer Paolo - [id number] Implanted:Qty: 1 on 09/12/2022 by Antonio Borges M.D. at [facility] Hardware e.g. pins/screws/yelena s [employer] [id number] / / Clp Hrzn Ti 6 Paulo Shearer Paolo - [id number] Implanted:Qty: 2 on 09/12/2022 by Antonio Borges M.D. at [facility] Hardware e.g. pins/screws/yelena s [employer] [id number] / / Intrauterine Device- 3 Implanted:12/17 (Quantity not on file) Intrauterine Device Uterus Description:MIRENA - Procedures Procedure Name Priority Date/Time Associated Diagnosis Comments THYROID-STIMULATIN G HORMONE-SENSITIVE (S-TSH) Routine 05/03/2023 11:22 AM WAITSTAFF Hypothyroidism Postsurgical BI BREAST SCREENING BILATERAL Routine 11/01/2017 8:53 AM CDT EXTI LIPID PANEL, S Routine 09/28/2017 9:14 AM CDT from Last 3 Months or Most Recently Relevant to Health Maintenance Results * S-TSH (Thyroid-Stimulating Hormone - Sensitive) (05/03/2023 11:22 AM WAITSTAFF) TSH, Sensitive 2.4 0.3 - 4.2 mIU/L 05/03/2023 12:34 PM WAITSTAFF DTL Blood (Blood, Venous) 05/03/2023 11:22 AM WAITSTAFF 05/03/2023 11:59 AM WAITSTAFF Yari Foy M.D. LAB BLOOD ADD-ON [facility] [address] [place] [address], [facility] [address] [place] [address] from Last 3 Months or Most Recently Relevant to Health Maintenance Advance Directives For more information, please contact: [phone] * Full Code (Latest Code Status on File) Date Activated Date Inactivated Comments 09/12/2022 9:48 AM 09/12/2022 9:16 PM Question Answer Comments Full Code: Not Discussed Due to: Patient not available * Full Code Date Activated Date Inactivated Comments 09/12/2022 6:00 AM 09/12/2022 9:48 AM Question Answer Comments Full Code: Discussed
--- OUTSIDE RECORDS SUMMARY | 2023-09-25 00:04 | XMS_ITS | Clinical Summary ---
Author Organization [facility] Address [address] [place] [address] Care Team Providers Care Solar Technician Name Role Phone Unavailable Primary Care Provider Unavailabl e Source Comments Patient records contain information from all sites at [facility]. For routine questions regarding patient records, call [phone] during business hours, M-F 8:00 AM - 5:00 PM Central Time. Record requests for emergency care only can be directed to [phone] at any time.[facility] Allergies Active Allergy Reactions Criticality Noted [...] Brother Lambert Roles Diabetes Maternal Grandfather keo willsi Stroke Maternal Grandfather keo willis Thyroid disease Maternal Grandfather keo lazaro Morillo d thyroid removed as a teenager Obesity Maternal Grandmother bernis Depression Mother Kriss Roles Obesity Mother Kriss Roles Diabetes Mother's Brother Bao Navaagie Obesity Mother's Brother Bao Cageuwagimauro Depression Mother's Sister Kacey person Diabetes Mother's Sister Kacey person Coronary artery disease Paternal Grandfather Glenn Ro les Diabetes Paternal Grandfather Glenn Roles Hypertension Paternal Grandfather Glenn Roles Obesity Paternal Grandfather Glenn Roles Lymphoma Paternal Grandmother Sandhya Cageuwag ie Maternal grandma Relation Name Status Comments Brother 1 jackeline roles Brother 2 douglas roles Brother 3 joseluis roles Brother 4 kaleigh roles Daughter ramya alva Father glen roles Father's Brother Lambert Roles Maternal Grandfather keo navaagie Maternal Grandmother bernis Mother Kriss Roles Mother's Brother Bao Cageuwagie Mother's Sister Kacey person Paternal Grandfather Glenn Roles Paternal Grandmother Sandhya Willis Maternal grandma Social History Tobacco Use Types [...] often do you attend chur ch or samaritan services? More than 4 times per year 06/28/2022 Do you belong to any clubs o r organizations such as catholic groups, unions, fraternal or athletic groups, or [...] Answer Date Recorded PHQ-2 Score 0 09/27/2018 [facility] Occupational Stress Questionnaire Answer Date Recorded [...] your living situation today? I have a [facility] place to live 09/04/2022 Education Answer Date Recorded What is the highest level of school you have completed or the highest degree you have received? Associate degree: academic program 09/27/2018 Sex and Gender Information Value Date Recorded Sex Assigned at Female 04/09/2018 1:27 PM CONCAVER Gender Identity Female 04/09/2018 1:27 PM CONCAVER Sexual Orientation Straight 04/09/2018 1: 27 PM CONCAVER Last Filed Vital Signs Vital Sign Reading Time Taken Comments Blood Pressure 116/78 05/03/2023 1:55 PM CONCAVER Pulse 98 05/03/2023 1:55 PM CONCAVER Temperature 36.4 ??C (97.5 ??F) 09/12/2022 5:35 PM CD T Respiratory Rate 15 09/12/2022 5:35 PM CDT Oxygen Saturation 100% 09/12/2022 5:35 PM CDT Inhaled Oxygen Concentration - - Weight 96.9 kg (213 lb 10 oz) 05/03/2023 1:55 PM CONCAVER Height 171.4 cm (5' 7.48) 05/03/2023 1:55 PM CS T Body Mass Index 32.98 05/03/2023 1:55 PM CONCAVER Plan of Treatment Health Maintenance Due Date [...] (Cholesterol) Screening 09/28/2022 09/28/2017 COVID-19 Vaccine ( - season) 2022 Influenza Vaccine (#1) 2023 4, 02/17/2004, 02/17/2004 Thyroid Stimulating Hormone (TSH) test for thyroid function 05/03/2024 05/03/2023, 12/26/2022, 10/18/2022, Additional history exists Cervical Cancer Screening 12/18/2025 12/18/2022 Pneumococcal vaccine (0-64 years) Aged Out No longer eligible based on patient's age to complete this topic Medical Devices Implanted Type Area Food Assembler Kitchen Device Identifier Shelf Expiration Date Model / Serial / Lot Clp Hrzn Ti 6 Clp Paolo - [id number] Implanted:Qty: 1 on 09/12/2022 by Antonio Borges M.D. at [facility] Hardware e.g. pins/screws/yelena s [employer] [id number] / / Clp Hrzn Ti 6 Clp Paolo - [id number] Implanted:Qty: 1 on 09/12/2022 by Antonio Borges M.D. at [facility] Hardware e.g. pins/screws/yelena s [employer] [id number] / / Clp Hrzn Ti 6 Clp Paolo - [id number] Implanted:Qty: 2 on 09/12/2022 by Antonio Borges M.D. at [facility] Hardware e.g. pins/screws/yelena s [employer] [id number] / / Intrauterine Device- 3 Implanted:12/17 (Quantity not on file) Intrauterine Device Uterus Description:MIRENA - Procedures Procedure Name Priority Date/Time Associated Diagnosis Comments THYROID-STIMULATIN G HORMONE-SENSITIVE (S-TSH) Routine 05/03/2023 11:22 AM CONCAVER Hypothyroidism Postsurgical BI BREAST SCREENING BILATERAL Routine 11/01/2017 8:53 AM CDT EXTI LIPID PANEL, S Routine 09/28/2017 9:14 AM CDT from Last 3 Months or Most Recently Relevant to Health Maintenance Results * S-TSH (Thyroid-Stimulating Hormone - Sensitive) (05/03/2023 11:22 AM CONCAVER) TSH, Sensitive 2.4 0.3 - 4.2 mIU/L 05/03/2023 12:34 PM CONCAVER DTL Blood (Blood, Venous) 05/03/2023 11:22 AM CONCAVER 05/03/2023 11:59 AM CONCAVER Yari Foy M.D. LAB BLOOD ADD-ON [facility] [address] [place] [address], [place] DTL [facility] [address] [place] [address] from Last 3 Months or Most Recently Relevant to Health Maintenance Advance Directives For more information, please contact: [phone] * Full Code (Latest Code Status on File) Date Activated Date Inactivated Comments 09/12/2022 9:48 AM 09/12/2022 9:16 PM Question Answer Comments Full Code: Not Discussed Due to: Patient not available * Full Code Date Activated Date Inactivated Comments 09/12/2022 6:00 AM 09/12/2022 9:48 AM Question Answer Comments Full Code: Discussed
--- OUTSIDE RECORDS SUMMARY | 2023-09-25 00:04 | XMS_ITS | Encounter Summary ---
Author Organization [facility] Address [address] [place] [address] Care Team Providers Care Index Editor Name Role Phone Unavailable Primary Care Provider Unavailabl e Reason for Referral * Outpatient (Routine) - Closed Specialty Diagnoses / Procedures Referred By David t Referred To Contact Endocrinology Diagnoses Hyperthyroidism Nadiya Fong C.N.P. [address] [place] [address] [facility] Referral ID Status Reason Start Date Expiration Date Visits Re quested Visits Authorized [id number] Closed 04/03/2018 04/03/2019 1 1 EMS ENGINEERING MANAGER Encounter Details Date Type Department Care Team (Late st Contact Info) Description 04/03/2018 Community Orders [facility] [address] [place] [address] Nadiya Fong, C.N.P. [address] [place] [address] Hyperthyroidism (Primary Dx) Social History Tobacco Use Types Packs/Day Years Used Date Smoking Tobacco: Never Assessed Sex and Gender Information Value Date Recorded Sex Assigned at Female 04/09/2018 1:27 PM SYSTEMS ENGINEERING MANAGER Gender Identity Female 04/09/2018 1:27 PM SYSTEMS ENGINEERING MANAGER Sexual Orientation Straight 04/09/2018 1: 27 PM SYSTEMS ENGINEERING MANAGER documented as of this encounter Plan of Treatment Scheduled Referrals Name Type Priority Associated Diagnoses Order Schedule Endocrinology Referral Outpatient Referral Routine Hyperthyroidism Expected: 04/03/2018 (Approximate), Expires: 04/03/2021 documented as of this encounter Visit Diagnoses Diagnosis Hyperthyroidism- Primary documented in this encounter
--- OUTSIDE RECORDS SUMMARY | 2023-09-25 00:04 | XMS_ITS ---
Author Organization [facility] Address [address] [place] [address] Care Team Providers Care Business Risk Consultant Name Role Phone Unavailable Unavailable Unavailable Surgery Details Not on file Complications Check Surgery Details section. Procedure Estimated Blood Loss Check Surgery Details section. Procedure Findings Check Surgery Details section. Procedure Specimens Taken Check Surgery Details section.
--- OUTSIDE RECORDS SUMMARY | 2023-09-25 00:04 | XMS_ITS | Continuity of Care Document ---
Author Organization [place] [facility], [facility] Address [address] [place] [address] Assessment No assessment recorded. Plan of Treatment Reminders Order Date Submit Date Provider Last Modified By Organization Details Last Modified Time Details Appointments None recorded. Lab None recorded. Referral None recorded. Procedures None recorded. Surgeries None recorded. Imaging None recorded. Medication Orders valacyclovi r 1 gram tablet 2023 024 [email or web address] Not available 12:15:34 Patient TargetsNo targets recorded. Patient Instructions Encounter Date Encounter Id Patient Instructions Last Modified By Organization Details Last Modified Time 09/06/2023 [id number] shingles: care instructions Not available 09/06/2023 12:15:46 - Records review ed - We discussed the importance of hydration and good nutrition to support the immune system and avoid complications. -We discussed differential, testing, and treatment options. - We discussed how to minimize infection risks. - We discussed warm and cool compresses as needed and skin protection. - We discussed keeping the area clean with soap and water as directed. - We discussed signs/symptoms of complications and to be seen urgently. - We discussed OTC options for symptomatic relief as needed. - We discussed treatment options and will proceed with Valacyclovir. We discussed potential SE and how to avoid. - We discussed stress management and immune fortification. 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 We discussed some of the potential complications of this infection with that baseline and when to seek further treatment. - We also discussed f/u as needed with changes. - We discussed populations that may have complications with these infections. - We discussed the expected course of the illness and when to follow up due to complications or different symptoms. ER precautions. - Advised temp and close monitoring to help treatment planning if needed. - All questions answered. The patient and her daughter verbalized understanding. They agreed to follow up as needed. They were comfortable with this plan. Not available 09/06/2023 17:36:46 Reason for Referral None Reported. Problems Name Status Onset Date Resolution Date Notes Provider Name and Address Organization Details Recorded Time Hypothyroidism Active 09/06/19 24 [facility]/06/2023 11:57:44 Seasonal allergy Active 09/06/19 24 [facility] 09/06/2023 11:57:53 Problem Notes None recorded. Procedures Surgical History Date Name Laterality Status Provider Name and Address Organization Details Recorded Time thyroidectomy completed [facility] 09/06/2023 11:58:21 section completed [facility] Abilio nair [facility] 09/06/2023 11:58:42 Imaging Results None recorded. Procedure Notes None recorded. Medical Equipment None Reported. Allergies Allergen ID Allergen Name Allergen Category Reaction Reaction Severity Criticality Documentation Date Start Date Code Code System Note Provider Name and Address Organization Details Recorded Time 907061 Singulair medicatio n anaphylax is moderate low 09/06/2023 83991 [address] [facility] 4 11:55:41 650557 aspirin medicatio n anaphylax is moderate high 09/06/2023 1191 RxNorm [facility] 4 11:56:12 Medications Name Sig Start Date Stop Date Status Note LastModified by Organization Details LastModified Time valacyclovir 1 gram tablet Take 1 tablet every 8 hours by oral route for 7 days. 2023 active Not Available Not Available Not Avai lable intrauterine device (IUD) Take by intrauterin e route. active Not Available Not Available No t Available levothyroxin e active Not Available Not Available Not Available calcium active Not Available Not Avail able Not Available Zyrtec 10 mg capsule Take by oral route. active Not Available Not Available Not Available Multi For Her active Not Available Not Available Not Available Flonase Allergy Relief active Not Available Not Available Not Available Vitals Date Recorded Body height Body mass index (BMI) Body weight Heart rate Oxygen saturation Oxygen saturation in Arterial blood by Pulse oximetry Respiratory rate Body temperature Systolic blood pressure Diastolic blood pressure Provider Name and Address Organization Details Last Updated DateTime 170.18 cm 32.9 kg/m2 30855.4 g 90 /min 95 % 95 % 18 /min 99 [degF] 128 mm[Hg] 64 mm[Hg] Ghazalajose Roth [facility] 11:54:18 Social History Question Answer Notes LastModified by Organizat ion Details LastModified Time Tobacco Smoking Status Never Smoker Ghazalajose Roth [facility] 09/06/2023 11:58:10 What Is Your Level Of Alcohol Consumption? Occasional Information not available 09/06/2023 Do You Use Any Illicit Or Recreational Drugs? No Information not available 09/06/2023 Sex: Female Functional Status None recorded. Mental Status None recorded. Family History Nothing Reported. Medical History Condition Response Coronary Artery Disease N Other N Gout N Kidney Stones N Blood Diseases N Hyperthyroidism N Emphysema N Hypothyroidism Y Depression N COPD N Developmental or Behavioral Disorders N Eczema, Hives or other skin conditions N Anxiety Disorder N Muscle, Joint, or Bone Problems N Vision or Eye Problems N Arthritis N N Congenital Anomalies N Cancer N Stroke N Bladder or Kidney Problems N High Cholesterol N Liver Disease N Fibromyalgia N Kidney Disease N Heart Problems N Ear or Hearing Problems N Fatigue N ADD or ADHD N Thyroid Problems N Skin Problems N Anemia N Constipation N Diabetes N Seizures/Epilepsy N Tuberculosis N Chronic Pain N Diverticulitis N Asthma N Allergies N Sleep Disorder N GERD/Reflux N Heart Disease N Pulmonary Embolism N N Hypertension N Osteoporosis N Chicken Pox N Gynecological History Statement/Question Response Date of LMP 08/19/2023 LMP Approximate Obstetrics History GPAL:G 0 P 0 0 0 0 Past Encounters Encounter ID Performer Location Encounter Start Date Encounter Closed Date Diagnosis/Indication Diagnosis SNOMED-CT Code [id number] PRAKASH NICHOLE [facility] [address] [place] [address] 09/06/2023 11:50:04 09/06/2023 12:16:10 Herpes zoster without complication [id number] Health Concerns Section Related Observation LastModified by Organization Detai ls LastModified Time None Recorded Concern Status LastModified by Organization Details LastModified Time None Recorded Payers Encounter Date Sequence Insurance Name Policy Number Policy Estrada Covered Member ID Estrada Member ID Guarantor Name 09/06/2023 1 [place] [id number] Leon Alva [id number] Sandhya Alva Notes Date Note Type Note Provider Name and Address Organization Details Recorded Time 09/06/2023 text/html HPI Notes: Acute Illness Reported by patient. Location/Where on the body?: skin (irritation, rash, possible bug bite) Quality/Descripti on of Symptom (i.e. burning, cramping, constant): aching; frequent; swollen Severity/Pain level: pain/discomfort level mild Duration/How long?: 2 days Modifying Factors/What makes it better?: hydration Context: recent travel (traveled from [place] Sunday) Associated Signs and Symptoms: Pt noticed 4 little bumps on her right hip area, seems like the rash is spreading and is having pain near her bikini line. Notes: Pt presents with her daughter. She reports she had some tenderness or itch/mild pain to the right hip and then saw small red spots. They have changed do fluid filled and are spreading. She reports pain around to the back and down to the inguinal area on the right. PRAKASH NICHOLE [address] [place], [address], [facility] 09/06/2023 17:36:50 OBGyn Episode No OBEpisode recorded.
== END 2023-09-24 17:29 | disposition home or self-care (01) ==
LOC: NFLDREF 09-25 00:02
PROVIDERS: PCP Nurse Practitioner Family; Referring Provider Nurse Practitioner Family; Visit Provider Nurse Practitioner
DX: N30.01 Acute cystitis with hematuria (principal); B96.20 Unspecified Escherichia coli [E. coli] as the cause of diseases classified elsewhere
CPT/HCPCS: 87086; 87186